=== PATIENT | male | born 1950 | race Caucasian/White ===

== ENCOUNTER 2021-02-24 14:01 | Emergency (ER) | payer MEDICARE, OTHER ==
[2021-02-24] MEDS ORDERED: Diphtheria,Pertussis(Acell),Tetanus Vaccine 0.5 ML Syringe IM ONE (14:05)
[2021-02-24] MEDS ORDERED: Bacitracin Oint 1 GM U/D Packet TOP ONE (14:06)
--- NOTE | 2021-02-24 14:10 | EDM.PDOC ---
ED HPI GENERAL MEDICAL PROBLEM - General Chief Complaint: Trauma Stated Complaint: fell about 4 ft off a ladder Time Seen by Provider: 02/24/21 14:05 Source of Information: Reports: Patient History Limitations: Reports: No Limitations - History of Present Illness INITIAL COMMENTS - FREE TEXT/NARRATIVE: 70 yo male fell off a ladder about 4 ft and landed on his R side. Has elbow pain, can't raise R arm at shoulder, and has some rib pain. Drove to ER and walked in. No SOB. No head injury. Tetanus is not UTD. Onset: Sudden Onset Date: 02/24/21 Duration: Minutes:, Constant Location: Reports: Chest, Upper Extremity, Right Quality: Reports: Ache Severity: Mild Improves with: Reports: Rest Worsens with: Reports: Movement Context: Reports: Trauma Associated Symptoms: Reports: No Other Symptoms Treatments [employer]: Reports: Other (see below) (none) Right Shoulder Pain Score (Numeric/FACES): 10 - Related Data Allergies Allergy/AdvReac Type Severity Reaction Status Date / Time No Known Allergies Allergy Verified 02/24/21 14:14 Home Meds: Home Meds Aspirin [Lo-Dose Aspirin EC] 81 mg PO DAILY 04/13/19 [History] HCTZ/Triamterene [Dyazide 25-37.5 MG] 1 tab PO DAILY 04/13/19 [History] Pantoprazole Sodium [Protonix] 20 mg PO DAILY 04/13/19 [History] Simvastatin [Zocor] 40 mg PO DAILY 04/13/19 [History] metFORMIN [Glucophage] 1,000 mg PO BID 04/13/19 [History] Glimepiride 2 mg PO DAILY 01/12/21 [History] Past Medical History HEENT History: Reports: Impaired Vision Cardiovascular History: Reports: High Cholesterol, Hypertension Endocrine/Metabolic History: Reports: Diabetes, Type II Review of Systems - Review of Systems Review Of Systems: See Below Constitutional: Reports: No Symptoms Eyes: Reports: No Symptoms Ears: Reports: No Symptoms Nose: Reports: No Symptoms Mouth/Throat: Reports: No Symptoms Respiratory: Reports: No Symptoms Cardiovascular: Reports: Chest Pain (ribs on R) GI/Abdominal: Reports: No Symptoms Genitourinary: Reports: No Symptoms Musculoskeletal: Reports: Shoulder Pain (right), Joint Pain (R elbow) Skin: Reports: Wound (skin tears, abrasions from the fall) ED EXAM, GENERAL - Physical Exam Exam: See Below Exam Limited By: No Limitations General Appearance: Alert, WD/WN, No Apparent Distress Eye Exam: Bilateral Eye: Normal Inspection Ears: Normal External Exam, Normal Canal, Hearing Grossly Normal Ear Exam: Bilateral Ear: Auricle Normal, Canal Normal Nose: Normal Inspection, No Blood Throat/Mouth: Normal Inspection, Normal Lips, Normal Oropharynx, Normal Voice, No Airway Compromise Head: Atraumatic, Normocephalic Neck: Normal Inspection, Supple, Non-Tender Respiratory/Chest: No Respiratory Distress, Lungs Clear, Normal Breath Sounds, No Accessory Muscle Use. No: Chest Non-Tender (rib tenderness on R lateral chest, no crepitus) Cardiovascular: Regular Rate, Rhythm, No Edema GI/Abdominal: Normal Bowel Sounds, Soft, Non-Tender, No Distention Back Exam: Normal Inspection. No: CVA Tenderness (R), CVA Tenderness (L) Extremities: Normal Inspection, Normal Range of Motion, Non-Tender, No Pedal Edema Neurological: Alert, Oriented, CN II-XII Intact, Normal Cognition, No Motor/Sensory Deficits Psychiatric: Normal Affect, Normal Mood Skin Exam: Warm, Dry, Normal Color, No Rash, Wound/Incision (R elbow and bilateral shins with abrasions). No: Intact Course - Vital Signs Last Recorded V/S: Last Vital Signs Temp 36.1 C 02/24/21 14:09 Pulse 82 02/24/21 14:09 Resp 12 02/24/21 14:09 BP 148/81 H 02/24/21 14:09 Pulse Ox 98 02/24/21 14:09 - Orders/Labs/Meds Orders: Active Orders 24 hr Category Date Time Status Vaccine to be Administered/Admin Charge [RC] ASDIRECTED Care 02/24/21 14:06 Active Meds: Medications Discontinued Medications Generic Name Dose Route Start Last Admin Trade Name Freq PRN Reason Stop Dose Admin Bacitracin 1 dose 02/24/21 14:06 02/24/21 14:36 Bacitracin Oint 1 Gm U/D Packet TOP 02/24/21 14:07 1 dose ONETIME ONE Administration Diphtheria/Tetanus/Acell Pertussis 0.5 ml 02/24/21 14:05 02/24/21 14:36 Diphtheria,Pertussis(Acell),Tetanus Vaccine 0.5 Ml Syringe IM 02/24/21 14:06 0.5 ml .ONCE ONE Administration Ibuprofen 600 mg 02/24/21 14:40 Ibuprofen 600 Mg Tab PO 02/24/21 14:41 ONETIME ONE - Radiology Interpretation Free Text/Narrative:: CXR-neg R elbow X-ray-neg R shoulder X-ray-neg Departure - Departure Time of Disposition: 15:00 Disposition: Home, Self-Care 01 Condition: Fair Clinical Impression: Abrasions of multiple sites, Multiple contusions, Rotator cuff insufficiency of right shoulder - Discharge Information *PRESCRIPTION DRUG MONITORING PROGRAM REVIEWED*: Not Applicable *COPY OF PRESCRIPTION DRUG MONITORING REPORT IN PATIENT MALORIE: Not Applicable Instructions: Traumatic Shoulder Instability Referrals: PCP,Unknown [Primary Care Provider] - Forms: ED Department Discharge Additional Instructions: Take ibuprofen and/or acetaminophen as needed for pain relief. Use your sling for support. Avoid attempting any over the head use of your right arm. Clean your wounds twice daily with soap and water and apply antibiotic ointment. Follow up with orthopedics next week. Sepsis Event Note (ED) - Focused Exam Vital Signs: Vital Signs Temp Pulse Resp BP Pulse Ox 02/24/21 14:09 36.1 C 82 12 148/81 H 98 - My Orders Last 24 Hours: My Active Orders 02/24/21 14:06 Vaccine to be Administered/Admin Charge [RC] ASDIRECTED - Assessment/Plan Last 24 Hours: My Active Orders 02/24/21 14:06 Vaccine to be Administered/Admin Charge [RC] ASDIRECTED
--- NOTE | 2021-02-24 14:38 | CR ---
Shoulder Comp Rt, CLINICAL HISTORY: Fall FINDINGS: There is no acute fracture or dislocation in the right shoulder. Articular surfaces are smooth Impression: Negative Elbow Min 3V Rt CLINICAL HISTORY: Fall FINDINGS: No acute fracture or dislocation is noted. The fat pads are in normal position. There is a small olecranon spur. There is also periarticular spurring in the radial head and capitellum. Impression: No fracture Osteoarthritic changes
--- NOTE | 2021-02-24 14:39 | CR ---
CHEST: 2 view CLINICAL HISTORY:Fall COMPARISON:None FINDINGS: The heart size, pulmonary vascularity and hilar structures are normal. No infiltrate effusion or pneumothorax is seen. No obvious rib fractures seen but study is limited IMPRESSION: No acute cardiopulmonary process.
[2021-02-24] MEDS ORDERED: Ibuprofen 600 MG Tab PO ONE (14:40)
== END 2021-02-24 15:09 | disposition home or self-care (01) ==
LOC: JP.ED 14:01
DX: S43.421A Sprain of right rotator cuff capsule, initial encounter (principal); S50.01XA Contusion of right elbow, initial encounter; S40.011A Contusion of right shoulder, initial encounter; S80.12XA Contusion of left lower leg, initial encounter; S80.11XA Contusion of right lower leg, initial encounter; E78.00 Pure hypercholesterolemia, unspecified; I10 Essential (primary) hypertension; E11.9 Type 2 diabetes mellitus without complications; Z79.82 Long term (current) use of aspirin; Z79.84 Long term (current) use of oral hypoglycemic drugs; Z23 Encounter for immunization; W11.XXXA Fall on and from ladder, initial encounter
CPT/HCPCS: 71046; 73030; 73080; 90471; 90715; 99283; A9270

== ENCOUNTER 2024-10-29 07:35 | Day surgery (SDC) | payer MEDICARE, OTHER ==
[~2024-10-29 07:35] MED LIST: Midazolam 1 MG/ML 2 ML SDV ONE; Propofol 200 MG/20 ML SDV ONE; fentaNYL 100 MCG/2 ML SDV ONE
[2024-10-29] MEDS: Lactated Ringers 1,000 ML IV SCH (08:28)
== END 2024-10-29 11:04 | disposition home or self-care (01) ==
LOC: JP.SDS 07:35
PROVIDERS: ATTEND Surgery
DX: Z12.11 Encounter for screening for malignant neoplasm of colon (principal); D12.8 Benign neoplasm of rectum; I10 Essential (primary) hypertension
CPT/HCPCS: 00812; 45385; 88305; J2250; J2704; J3010; J7120